=== PATIENT | female | born 1985 | race Caucasian/White ===

== ENCOUNTER 2018-02-27 10:27 | Inpatient (IN) ==
[~2018-02-27 10:27] MED LIST: Methylergonovine 0.2 MG/ML AMPUL IM ONE
[2018-02-27] MEDS ORDERED: Ringers Solution, Lactated 1,000 ML IVC ONE (10:34)
[2018-02-27] MEDS ORDERED: Metoclopramide 10 MG/2 ML VIAL IVP ONE (10:34)
[2018-02-27] MEDS ORDERED: Famotidine 20 MG/2 ML VIAL IVP ONE (10:34)
[2018-02-27] MEDS ORDERED: Oxytocin 20 units/ LR 1000 mL 20 UNIT/1,000 ML BAG IVC ONE (10:34)
[2018-02-27] MEDS ORDERED: CeFAZolin Premix DUPLEX 2,000 MG/50 ML BAG IVPB ONE (10:34)
[2018-02-27] MEDS ORDERED: Oxytocin 20 units/ LR 1000 mL 20 UNIT/1,000 ML BAG IVC SCH ×2 (10:45→15:34)
[2018-02-27] MEDS ORDERED: Ringers Solution, Lactated 1,000 ML IVC SCH (10:45)
--- NOTE | 2018-02-27 10:53 | Anesthesia Evaluation PreOp ---
Date of Encounter: 02/27/18 Time of Encounter: 10:49 - Past History Planned Operation: repeat , Cardiac History: Denies any Significant Hx Pulmonary History: Denies Any Significant HX PRODUCTION LINE WELDER History: Denies Any Significant HX Other Medical History: Denies Any Significant HX Anesthesia History: No Prior Anesthetic Complications, Past Anesthesia (GA for first .) Medications and Allergies Pnv Plus Multivit Tab 1 tab PO DAILY 02/27/18 [History] 3 Allergy/AdvReac Type Severity Reaction Status Date / Time No Known Allergies Allergy Verified 02/27/18 10:32 Anesthesia Exam - HEENT Pupil (Motor): Pupils equal Mallampati: II Teeth: Normal Oral Opening: Greater than 3 - PRODUCTION LINE WELDER LOC: Oriented PRODUCTION LINE WELDER Motor: Normal RUE, Normal LUE, Normal RLE, Normal LLE, Normal Face PRODUCTION LINE WELDER Sensory: Normal: RUE, LUE, RLE, LLE, Face - Cardiac Rhythm: Regular Murmur: None - Pulmonary Breath Sounds: bilateral Clear Respiratory Effort: Symmetrical Anesthesia Assess/Plan ASA Score: 2 Modified Vielka Scale for Level of Consciousness: Cooperative, oriented, and tranquil Anesthetic Plan: General, Regional Monitoring Plan: Standard Monitors Recovery Plan: PACU
[2018-02-27 10:54] LABS: Basophils % 0.2 %; Eosinophils # 0.1 K/mcL (0.0-0.6); Eosinophils % 0.6 %; Hematocrit 31.8 % (35.3-44.9); Hemoglobin 10.6 g/dL (11.5-15.4); Immature Granulocytes % 1.1 % (0-4); Lymphocytes # 2.2 K/mcL (0.6-4.6); Lymphocytes % 23.3 %; Mean Corpuscular HGB Conc 33.3 g/dL (31.6-35.5); Mean Corpuscular Volume 77.9 fL (83.0-100.0); Mean Platelet Volume 11.2 fL (9.4-12.4); Monocytes # 0.7 K/mcL (0.0-1.3); Monocytes % 7.4 %; Neutrophils # 6.3 K/mcL (1.6-8.9); Platelet Count 146 K/mcL (140-400); Red Blood Count 4.08 M/mcL (3.82-4.97); Red Cell Distribution Width 13.5 % (11.5-14.5); Segmented Neutrophils % 67.4 %
[2018-02-27] MEDS ORDERED: *HR* Promethazine 25 MG/ML VIAL IVP PRN (10:54)
[2018-02-27] MEDS ORDERED: Acetaminophen IV 1,000 MG/100 ML INFUS..BTL IVPB ONE (10:54)
[2018-02-27] MEDS ORDERED: *HR* HYDROmorphone (PF) 1 MG/ML SYRINGE IVP PRN ×2 (10:54→15:34)
[2018-02-27] MEDS ORDERED: EPHEDrine 50 MG/ML VIAL ONE (11:20)
[2018-02-27] MEDS ORDERED: Morphine Sulfate/PF 5mg/10mL Vial ONE (11:20)
[2018-02-27] MEDS ORDERED: *HR* Oxytocin 10 UNIT/ML VIAL IM ONE (11:20)
[2018-02-27] MEDS ORDERED: *HR* FentaNYL (PF) 100 MCG/2 ML VIAL ONE (11:20)
[2018-02-27] MEDS ORDERED: Ringers Solution, Lactated 1,000 ML ONE (11:21)
--- NOTE | 2018-02-27 11:41 | OB/GYN History & Physical ---
Date of Encounter: 02/27/18 Time of Encounter: 11:39 Assessment and Plan (1) Previous delivery affecting Current visit: Yes Status: Chronic Risk and benefits of repeat low transverse section were discussed. (2) 39 weeks gestation of Current visit: Yes Status: Chronic (3) Marijuana abuse in remission Current visit: Yes Status: Resolved History of Present Illness HPI: Ms. Barboza is a 32 year old female Patient is a 32-year-old 2 para 1 white female who enters today for repeat section. She is at 39 weeks. She has been followed in our office without any problems. She denies spontaneous rupture membranes vaginal bleeding. She reports active fetus. Her history is complicated by marijuana use early in . She has been seen by our child protective services social worker to discuss this. Past Med Surg Social Fam HX - Past Medical History Medical history: no medical history Psychiatric history: no psych history - Past Surgical History Surgical History: other Additional surgical history: in 2010 - Social History Smoking Status: Former smoker Smokeless Tobacco Status: No Alcohol use: none Drug use: marijuana, other - Family History Mother Age: 49 Family Member Ethnicity: Non- Living Status: Still Living Hx Family Cardiac Disorders: No Hx Family Respiratory Disorders: No Hx Family Cancer: No Hx Family GI Disorders: No Hx Family Genitourinary Disorders: No Hx Family Endocrine Disorder: No Hx Family Musculoskeletal Disorders: No Hx Family Neuromuscular Disorders: No Hx Family Neurologic Disorders: No Hx Family HEENT Disorders: No Hx Family Autoimmune Disorders: No Hx Family Reproductive Disorders: No Hx Family Psychosocial Disorders: No Hx Family Medical Disorders: No Obstetrical History - Pregnancies : 2 Para: 1 Medications and Allergies Pnv Plus Multivit Tab 1 tab PO DAILY 02/27/18 [History] 3 Allergy/AdvReac Type Severity Reaction Status Date / Time No Known Allergies Allergy Verified 02/27/18 10:32 Review of System OB All systems PM: reviewed and no additional remarkable complaints except as stated - Genitourinary Genitourinary: amenorrhea - Menstruation Menstruation: amenorrhea Exam - Constitutional Constitutional: well developed, well nourished, no acute distress, average body habitus - HEENT HEENT: Normocephaly - Neck Neck exam: full ROM - Lungs Respiratory exam: CTAB - Cardiovascular Cardiovascular exam: RRR - Abdomen Abdomen: Present: gravid, non tender - Extremities Extremities exam: full ROM Deep Tendon Reflex Grade: 2+ Normal - Uterus Uterus exam: Present: enlarged Results Result Diagrams: 02/27/18 10:25 Abnormal lab results Hgb 10.6 g/dL (11.5-15.4) L 02/27/18 10:25 Hct 31.8 % (35.3-44.9) L 02/27/18 10:25 MCV 77.9 fL (83.0-100.0) L 02/27/18 10:25 MCH 26.0 pg (28.0-33.3) L 02/27/18 10:25 All other labs normal. - Attending Attestation jesica dunbar md facog
[2018-02-27 12:07] LABS: Amphetamine Screen,Urine Negative ng/mL (Cutoff=1000); Barbiturate Screen,Urine Negative ng/mL (Cutoff=200); Benzodiazepines Screen,Urine Negative ng/mL (Cutoff=200); Cannabinoid Screen,Urine Negative ng/mL (Cutoff = 50); Cocaine Screen,Urine Negative ng/mL (Cutoff= 300); Opiate Screen,Urine Negative ng/mL (Cutoff=300); Phencyclidine Screen,Urine Negative ng/mL (Cutoff=25)
--- NOTE | 2018-02-27 13:08 | OB/GYN Procedure Note ---
Section - Date of procedure: 02/27/18 Preop diagnosis: desires repeat Post-op diagnosis: same Procedure: repeat low transverse Surgeon: Jacobo Man Blood Loss: 700 Was there an assistant professor of chemistry present: No Anesthesiologist: Rachel Zavala Anesthesia Type: Spinal section complications: none Disposition: PACU Specimens: Placenta - Infant (s) A Infant Delivery Date: 02/27/18 Delivery Time: 12:23 Presentation: vertex Position: YOON Gender: Female Viability: Viable Pounds: 9 Ounces: 0 at 1 minute: 9 at 5 minutes: 10 Specimens collected: cord blood Placenta: complete extraction - Narrative Narrative: Patient was taken to the operating room. After satisfactory spinal anesthesia was achieved, patient placed in supine position, Saleem placed and prepped and draped in usual manner. After satisfactory timeout was obtained, abdomen was entered through standard Maylard incision. The Ryan retractor was placed. The peritoneum overlying the lower uterine segment was incised in U-shaped fashion. Uterine cavity was entered sharply extended laterally. Fluid was clear. With fundal pressure the head was delivered. The was suctioned upon delivery of the head. The remainder of the was delivered. The umbilical cord double clamped and cut and the infant was handed nurse staff for further evaluation. Placenta was removed. Uterus was closed with 0 Monocryl in a single layer. After assurance hemostasis, the retractor was removed. The abdomen was closed standard fashion using 0 PDS on the fascia and 3-0 Monocryl in the skin. Sterile dressing was applied. Patient did well was taken to recovery in satisfactory condition. Counts were correct.
[2018-02-27] MEDS ORDERED: Methylergonovine 0.2 MG/ML AMPUL IM ONE (13:10)
--- NOTE | 2018-02-27 14:11 | Anesthesia Evaluation Post Op ---
Date of Encounter: 02/27/18 Time of Encounter: 12:02 - Vital Signs Vital Signs: vss - Lungs Lungs: Clear Ascult./Percussion - Airway Airway: Non-obstructed - Mental Status Mental Status: Alert & Oriented, Answers Appropriately - Pain Pain Scale used: Wills-Montgomery (Faces) (tolerable) - Nausea Vomiting Nausea Vomiting: Not Present - Hydration Hydration: Ice chips, Saleem catheter - Discharge PostOp Status: Transfer Patient to floor
[2018-02-27] MEDS ORDERED: Ondansetron 4 MG/2 ML VIAL IVP PRN (15:34)
[2018-02-27] MEDS ORDERED: Metoclopramide 10 MG/2 ML VIAL IVP PRN (15:34)
[2018-02-27] MEDS ORDERED: Acetaminophen 325 MG TABLET PO PRN (15:34)
[2018-02-27] MEDS ORDERED: *HR* Morphine 2 MG/ML SYRINGE IVP PRN (15:34)
[2018-02-27] MEDS ORDERED: Sennosides 8.6 MG TABLET PO PRN (15:34)
[2018-02-27] MEDS ORDERED: Simethicone 80 MG TAB.CHEW PO PRN (15:34)
[2018-02-27] MEDS ORDERED: Rho Immune Globulin 1,500 UNIT SYRINGE IM ONE (15:34)
[2018-02-28] MEDS: Ibuprofen 600 MG TABLET PO PRN ×4 (01:28→22:18)
[2018-02-28 04:35] LABS: Basophils % 0.3 %; Eosinophils # 0.1 K/mcL (0.0-0.6); Eosinophils % 0.8 %; Hematocrit 23.6 % (35.3-44.9); Immature Granulocytes % 0.7 % (0-4); Lymphocytes # 2.2 K/mcL (0.6-4.6); Lymphocytes % 21.1 %; Mean Corpuscular HGB Conc 33.1 g/dL (31.6-35.5); Mean Corpuscular Hemoglobin 26.3 pg (28.0-33.3); Mean Corpuscular Volume 79.5 fL (83.0-100.0); Mean Platelet Volume 11.5 fL (9.4-12.4); Monocytes # 0.7 K/mcL (0.0-1.3); Monocytes % 6.6 %; Neutrophils # 7.3 K/mcL (1.6-8.9); Platelet Count 118 K/mcL (140-400); Red Blood Count 2.97 M/mcL (3.82-4.97); Red Cell Distribution Width 13.6 % (11.5-14.5); Segmented Neutrophils % 70.5 %
[2018-02-28 04:38] LABS: Hemoglobin 7.8 g/dL (11.5-15.4)
[2018-02-28] MEDS: Prenatal Vit/FA 1 EACH TABLET PO SCH (08:46)
[2018-02-28] MEDS ORDERED: NON-FORMULARY MEDICATION 1 EACH EACH (Pnv Prenatal Plus Multivit Tab 1 TAB) PO SCH (09:00)
--- NOTE | 2018-02-28 14:53 | OB/GYN Progress Note ---
Date of Encounter: 02/28/18 Time of Encounter: 08:00 - Assessment and Plan (1) Status post delivery Current Visit: Yes Status: Acute Pt meeting post-op day 1 milestones. Anticipate discharge home POD 2-3. (2) anemia Current Visit: Yes Status: Acute Pt denies s/sx anemia. Continue iron. (3) Marijuana abuse in remission Current Visit: Yes Status: Resolved SS consult Subjective - Subjective Interval history: Pt has not yet ambulated in hallway and has not passed flatus. Patient reports: appetite normal, voiding normally, pain well controlled, ambulating normally : doing well Objective - Vital Signs Latest vital signs: Vital Signs Temp Pulse Resp BP Pulse Ox 02/28/18 07:50 98.3 F 86 12 101/71 99 02/28/18 04:15 97.8 F 80 14 99/68 100 02/28/18 00:50 98.4 F 92 14 101/64 98 02/27/18 20:30 98.5 F 89 14 105/75 99 02/27/18 18:40 16 02/27/18 18:30 97.8 F 87 16 108/75 98 02/27/18 17:40 16 02/27/18 16:33 16 02/27/18 16:30 97.9 F 76 16 109/71 100 02/27/18 16:00 97.9 F 75 16 100/73 99 02/27/18 15:34 98.1 F 69 16 110/70 98 Intake and Output 02/27/18 02/28/18 02/28/18 23:59 07:59 15:59 Intake Total 100 / 100 120 / 120 Output Total 350 / 350 1200 / 1200 Balance -350 / -350 -1100 / -1100 120 / 120 Intake: Oral 100 / 100 120 / 120 Output: Catheter 350 / 350 1200 / 1200 Other: Meal Breakfast Percent of Meal Consumed 70% - Exam Lungs: bilateral: normal Chest: Normal S1, Normal S2 Extremities: Present: normal Abdomen: Present: soft Incision: Present: dressed (dressing dry and intact) Uterus: Present: firm - Labs Labs: Laboratory Results - last 24 hr 02/28/18 04:06 WBC 10.3 RBC 2.97 L Hgb 7.8 L D Hct 23.6 L MCV 79.5 L MCH 26.3 L MCHC 33.1 RDW 13.6 Plt Count 118 L MPV 11.5 Immature Gran % 0.7 Seg Neutrophils % 70.5 Lymphocytes % 21.1 Monocytes % 6.6 Eosinophils % 0.8 Basophils % 0.3 Neutrophils # 7.3 Lymphocytes # 2.2 Monocytes # 0.7 Eosinophils # 0.1 Basophils # 0.0
[2018-02-28] MEDS: *HR* OxyCODONE/APAP 5/325 TABLET PO PRN (20:08)
[2018-03-01] MEDS: *HR* OxyCODONE/APAP 5/325 TABLET PO PRN ×2 (05:04→09:57)
[2018-03-01] MEDS: Ibuprofen 600 MG TABLET PO PRN (05:05)
[2018-03-01] MEDS: Prenatal Vit/FA 1 EACH TABLET PO SCH (08:10)
[2018-03-01 08:27] VITALS: BP 117/75
--- NOTE | 2018-03-01 10:39 | Discharge Summary ---
Date of Encounter: 03/01/18 Time of Encounter: 10:35 - Discharge Diagnosis (1) anemia Priority: Secondary Status: Acute Comments: Remains asymptomatic Will discharge home on BID iron (2) Status post delivery Priority: Primary Status: Acute Comments: Stable and meeting all PP milestones. Tolerates regular diet, passing flatus, pain well managed on PO pain medication. . Desires discharge. - Discharge Medications Prescriptions: OxyCODONE/APAP 5/325 [Percocet 5/325 MG] 1 each PO Q4HR PRN 5 Days #20 tablet PRN Reason: Moderate pain 4-6 Ibuprofen [Motrin] 600 mg PO Q6HR PRN #60 tablet PRN Reason: Cramping Docusate [Colace] 100 mg PO BID #60 capsule Ferrous Sulfate 325 mg PO BIDWM #60 tablet Home Medications: Pnv Plus Multivit Tab 1 tab PO DAILY 02/27/18 [History] Acetaminophen [Tylenol] 325 mg PO Q6HR PRN tablet 03/01/18 [Rx] Docusate [Colace] 100 mg PO BID #60 capsule 03/01/18 [Rx] Ferrous Sulfate 325 mg PO BIDWM #60 tablet 03/01/18 [Rx] Ibuprofen [Motrin] 600 mg PO Q6HR PRN #60 tablet 03/01/18 [Rx] OxyCODONE/APAP 5/325 [Percocet 5/325 MG] 1 each PO Q4HR PRN 5 Days #20 tablet [Rx] Vit/FA 1 each PO DAILY tablet 03/01/18 [Rx] Simethicone [Gas-X] 80 mg PO TID PRN tab.chew 03/01/18 [Rx] Allergies/Adverse Reactions: 3 Allergy/AdvReac Type Severity Reaction Status Date / Time No Known Allergies Allergy Verified 02/27/18 10:32 Data Procedures and tests throughout hospitalization: Laboratory Tests 02/27/18 02/27/18 02/28/18 10:25 10:25 04:06 WBC 9.4 10.3 RBC 4.08 2.97 L Hgb 10.6 L 7.8 L D Hct 31.8 L 23.6 L MCV 77.9 L 79.5 L MCH 26.0 L 26.3 L MCHC 33.3 33.1 RDW 13.5 13.6 Plt Count 146 118 L MPV 11.2 11.5 Immature Gran % 1.1 0.7 Seg Neutrophils % 67.4 70.5 Lymphocytes % 23.3 21.1 Monocytes % 7.4 6.6 Eosinophils % 0.6 0.8 Basophils % 0.2 0.3 Neutrophils # 6.3 7.3 Lymphocytes # 2.2 2.2 Monocytes # 0.7 0.7 Eosinophils # 0.1 0.1 Basophils # 0.0 0.0 Urine Opiates Screen Negative Ur Barbiturates Screen Negative Ur Phencyclidine Scrn Negative Ur Amphetamines Screen Negative U Benzodiazepines Scrn Negative Urine Cocaine Screen Negative U Marijuana (THC) Screen Negative Ur Drug Screen Interp See Below Date of admission: 02/27/18 10:27 Primary care physician: [place] Provider Discharging clinician: Montserrat Chavarria Anticipated date of discharge: 03/01/18 - Patient Status Disposition: Home, Self-Care Condition: Good Functional capacity at discharge: independent ambulation Overall status at discharge: patient is back to baseline - Discharge Instructions Instructions: Anemia (GEN) Follow Up With: Lynn Meredith [Primary Care Provider] - Jacobo Larson MD [Partnered Physician] - - Diet and Activity Activity: resume usual activities as tolerated Diet: regular diet Hospital Course Reason for admission: section, IUP at term Delivery: section Episiotomy: none Laceration: none Other procedures: none complications: none Discharge diagnosis: IUP at term delivered [place] baby: female Hospital course: Section - Date of procedure: 02/27/18 Preop diagnosis: desires repeat Post-op diagnosis: same Procedure: repeat low transverse Surgeon: Jacobo Larson Quantitated Blood Loss: 700 Was there an child development assistant present: No Anesthesiologist: Rachel Zavala Anesthesia Type: Spinal section complications: none Disposition: PACU Specimens: Placenta - (s) A Delivery Date: 02/27/18 Delivery Time: 12:23 Presentation: vertex Position: YOON Gender: Female Viability: Viable Pounds: 9 Ounces: 0 at 1 minute: 9 at 5 minutes: 10 Specimens collected: cord blood Placenta: complete extraction Stable and appropriate for discharge. OAARS reviewed. Time Attestation: Total time spent providing and/or coordinating discharge services: Time Spent: Less than 30 minutes - VTE Documentation of Mechanical Device: Intermittent pneumatic compression device Exam - Constitutional Vitals: Temp Pulse Resp BP Pulse Ox 98.0 F 94 16 117/75 100 03/01/18 08:26 03/01/18 08:26 03/01/18 08:26 03/01/18 08:26 03/01/18 08:26 General appearance IM: A&O X 3 - Respiratory Respiratory exam: Present: CTAB - Cardiovascular Cardiovascular exam IM: Present: RRR - GI/Abdominal GI/Abdominal exam IM: normal bowel sounds, soft Incision: dressed (LACY in place ) - Uterine Tone: Firm Uterus Position: 1 Finger Below Umbilicus - Extremities Exam Extremities exam IM: Present: normal capillary refill, normal inspection - Neurological Exam Neurological exam: normal gait, oriented X3 - Psychiatric Additional comments: Reports good mood
== END 2018-03-01 15:41 | disposition home or self-care (01) | DRG 766 ==
LOC: 1NENULAB 10:27 → 1NENUOBS 15:33
PROVIDERS: ADMIT Obstetrics & Gynecology; ATTEND Obstetrics & Gynecology